=== PATIENT | male | born 1970 | race Caucasian/White ===

== ENCOUNTER 2021-06-08 11:01 | Observation (INO) | payer SELFPAY ==
[~2021-06-08] VITALS: Ht 190.5 cm; Wt 90.8 kg
[2021-06-08 12:58] LABS: BASOPHILS ABSOLUTE AUTO 0.02 K/mm3 (0.00-0.23); BASOPHILS PERCENT AUTO 0 % (0-2); EOSINOPHILS PERCENT AUTO 0 % (0-6); Hematocrit 47.3 % (37.0-53.0); Hemoglobin 15.9 g/dL (13.5-17.5); IMMATURE GRAN ABSOLUTE AUTO 0.04 K/mm3 (0.00-0.10); IMMATURE GRAN PERCENT AUTO 1 % (0-1); LYMPHOCYTES ABSOLUTE AUTO 0.59 K/mm3 (0.84-5.20); LYMPHOCYTES PERCENT AUTO 9 % (21-46); MONOCYTES ABSOLUTE AUTO 0.29 K/mm3 (0.16-1.47); MONOCYTES PERCENT AUTO 4 % (4-13); Mean Corpuscular HGB 26.6 pg (26.0-34.0); Mean Corpuscular HGB Conc 33.6 g/dL (31.5-36.5); Mean Corpuscular Volume 79 fL (80-100); Mean Platelet Volume 11.7 fL (9.1-12.4); NEUTROPHILS ABSOLUTE AUTO 5.86 K/mm3 (1.96-9.15); NEUTROPHILS PERCENT AUTO 86 % (41-73); Platelet Count 186 K/mm3 (150-400); RDW Coefficient Variation 13.2 % (11.7-14.2); RDW Standard Deviation 38.6 fL (35.1-46.3); Red Blood Cell Count 5.97 M/mm3 (4.30-5.90)
[2021-06-08 13:17] LABS: Alanine Aminotransfer (ALT/SGP 50 U/L (12-78); Albumin, Blood 3.7 g/dL (3.4-5.0); Albumin/Globulin Ratio 0.8 (0.8-1.8); Alk Phos 87 U/L (50-136); Anion Gap 17 mmol/L (6-16); Aspartate Aminotrans (AST/SGOT 45 U/L (12-37); Bilirubin, Total 0.5 mg/dL (0.1-1.0); Blood Urea Nitrogen 16 mg/dL (8-24); Bun/Creatinine Ratio 20.1 (12.0-20.0); CO2, Blood 13 mmol/L (21-32); Calcium, Blood 9.3 mg/dL (8.5-10.1); Chloride, Blood 105 mmol/L (98-108); Globulin, Blood 4.4 g/dL (2.2-4.0); Glomerular Filtration Rate >60 (60-); Glucose, Blood 345 mg/dL (70-99); Potassium, Blood 4.3 mmol/L (3.5-5.5); Sodium, Blood 135 mmol/L (136-145); Total Protein, Blood 8.1 g/dL (6.4-8.2)
[2021-06-08] MEDS ORDERED: OMEP20ER PO (14:11)
[2021-06-08] MEDS ORDERED: ZYRTEC10 M2 PO (14:11)
[2021-06-08 17:46] LABS: Anion Gap 15 mmol/L (6-16); Blood Urea Nitrogen 17 mg/dL (8-24); Bun/Creatinine Ratio 21.1 (12.0-20.0); CO2, Blood 13 mmol/L (21-32); Calcium, Blood 8.5 mg/dL (8.5-10.1); Chloride, Blood 111 mmol/L (98-108); Creatinine, Blood 0.81 mg/dL (0.60-1.20); Glomerular Filtration Rate >60 (60-); Glucose, Blood 310 mg/dL (70-99); Potassium, Blood 4.2 mmol/L (3.5-5.5); Sodium, Blood 139 mmol/L (136-145)
[2021-06-08 19:02] LABS: PCO2 Arterial 20.1 mmHg (35-45); PO2 Arterial 86.4 mmHg (80-100); pH Blood Arterial 7.28 (7.35-7.45)
[2021-06-08 23:50] LABS: Albumin, Blood 3.1 g/dL (3.4-5.0); Anion Gap 14 mmol/L (6-16); Blood Urea Nitrogen 14 mg/dL (8-24); Bun/Creatinine Ratio 17.1 (12.0-20.0); CO2, Blood 15 mmol/L (21-32); Calcium, Blood 8.5 mg/dL (8.5-10.1); Chloride, Blood 109 mmol/L (98-108); Creatinine, Blood 0.82 mg/dL (0.60-1.20); Glomerular Filtration Rate >60 (60-); Glucose, Blood 250 mg/dL (70-99); Magnesium, Blood 1.8 mg/dL (1.6-2.4); Phosphorus, Blood 2.5 mg/dL (2.5-4.9); Sodium, Blood 138 mmol/L (136-145)
--- NOTE | 2021-06-09 00:14 | NUR ---
PHYSICIAN COMMUNICATION CONTACTED PRODUCT SCIENTIST PHYSICIAN, DR JOEL, TO NOTIFY HER THAT THE PATIENT WAS HAVING A BAD COUGH AND REQUESTING COUGH MEDICINE. DR JOEL SAID TO ORDER GUAIFENESIN WITH LAURA.
[2021-06-09 04:52] LABS: Hematocrit 39.3 % (37.0-53.0); Hemoglobin 12.9 g/dL (13.5-17.5); Mean Corpuscular HGB Conc 32.8 g/dL (31.5-36.5); Mean Corpuscular Volume 82 fL (80-100); Mean Platelet Volume 11.3 fL (9.1-12.4); Platelet Count 162 K/mm3 (150-400); RDW Coefficient Variation 13.5 % (11.7-14.2); RDW Standard Deviation 40.6 fL (35.1-46.3); Red Blood Cell Count 4.77 M/mm3 (4.30-5.90); White Blood Cell Count 5.24 K/mm3 (4.00-11.30)
[2021-06-09 05:09] LABS: Anion Gap 10 mmol/L (6-16); Blood Urea Nitrogen 15 mg/dL (8-24); Bun/Creatinine Ratio 17.9 (12.0-20.0); CO2, Blood 18 mmol/L (21-32); Calcium, Blood 8.1 mg/dL (8.5-10.1); Chloride, Blood 111 mmol/L (98-108); Creatinine, Blood 0.84 mg/dL (0.60-1.20); Glomerular Filtration Rate >60 (60-); Glucose, Blood 256 mg/dL (70-99); Magnesium, Blood 1.9 mg/dL (1.6-2.4); Phosphorus, Blood 2.6 mg/dL (2.5-4.9); Potassium, Blood 4.1 mmol/L (3.5-5.5); Sodium, Blood 139 mmol/L (136-145)
--- NOTE | 2021-06-09 06:17 | NUR ---
SHIFT SUMMARY PATIENT ALERT AND ORIENTED. INDEPENDENT IN HIS ROOM. MEDICATED PER EMAR FOR PAIN AND COUGH. PATIENT TACHYPNIC AND SHORT OF BREATH. SATING IN 90'S ON ROOM AIR. NO ACUTE ISSUES NOTED. IV PATENT AND INFUSING. BED IN LOWEST POSITION WITH WHEELS LOCKED. CALL LIGHT WITHIN REACH. REPORT GIVEN TO ONCOMING RN.
[2021-06-09 09:23] LABS: Albumin, Blood 2.7 g/dL (3.4-5.0); Anion Gap 9 mmol/L (6-16); Blood Urea Nitrogen 14 mg/dL (8-24); Bun/Creatinine Ratio 21.2 (12.0-20.0); CO2, Blood 18 mmol/L (21-32); Calcium, Blood 7.9 mg/dL (8.5-10.1); Chloride, Blood 112 mmol/L (98-108); Creatinine, Blood 0.66 mg/dL (0.60-1.20); Glomerular Filtration Rate >60 (60-); Glucose, Blood 233 mg/dL (70-99); Potassium, Blood 3.9 mmol/L (3.5-5.5); Sodium, Blood 139 mmol/L (136-145)
[2021-06-09] MEDS ORDERED: ACET325 PO (18:13)
[2021-06-09] MEDS ORDERED: ALBU90OI INH (18:15)
[2021-06-09] MEDS ORDERED: Tessalon200 MG PO (18:16)
[2021-06-09] MEDS ORDERED: CODEINE-GUAIFE120 M1 PO (18:19)
[2021-06-09] MEDS ORDERED: INSULANPEN SC (18:20)
[2021-06-09] MEDS ORDERED: INSULIN LI100 UNIT/6 SC ×2 (18:20→18:21)
[2021-06-09] MEDS ORDERED: K-Phos Origina500 MG PO (18:22)
[2021-06-09] MEDS ORDERED: SYMBICORT 80-10.2 GM INH (18:40)
--- NOTE | 2021-06-09 19:34 | NUR ---
SHIFT SUMMARY: NO ACUTE CHANGES TO REPORT THIS SHIFT. PT A&O; CALM AND COOPERATIVE WITH CARE; INDEPENDENT IN ROOM. PATIENT READY FOR DISCHARGE; IV D/C'd; EDUCATION COMPLETED; MEDS FAXED TO [facility]; AWITING FAMILY PICK-UP. REPORT GIVEN TO ONCOMING RN.
--- NOTE | 2021-06-09 20:39 | NUR ---
PT DISCHARGED HOME WITH HIS .
--- NOTE | 2021-06-10 17:30 | NUR ---
JORDYN BRIGGS THIS RN TOOK A VERBAL ORDER FOR A PRESCRIPTION FROM DR. MICHAUD- JORDYN ODT 4 MG PO EVERY 4 HOURS NEEDED. 30 TABS, NO REFILLS. THIS RN CALLED PRESCRIPTION INTO [facility] PER PT REQUEST.
== END 2021-06-09 20:36 | disposition home or self-care (01) ==
LOC: ER 11:01 → ERHOLD 11:02 → MEDS 20:32
PROVIDERS: Emergency Medicine; Physician Assistant; ADMIT Internal Medicine
DX: E11.65 Type 2 diabetes mellitus with hyperglycemia (principal); E86.0 Dehydration; U07.1 COVID-19; J12.82 Pneumonia due to coronavirus disease 2019; E83.39 Other disorders of phosphorus metabolism; J45.909 Unspecified asthma, uncomplicated; I10 Essential (primary) hypertension; K21.9 Gastro-esophageal reflux disease without esophagitis
CPT/HCPCS: 36415; 36600; 71045; 80048; 80053; 80069; 82803; 82947; 83036; 83735; 84100; 84145; 85025; 85027; 94640; 96361; 96372; 96374; 96375; 99285-25; A9270; G0378; J1650; J2405; J2550; J7030

== ENCOUNTER 2021-06-13 11:11 | Inpatient (IN) | payer SELFPAY ==
[~2021-06-13] VITALS: Ht 182.9 cm; Wt 88.9 kg
[~2021-06-13 11:11] MED LIST: ACET325 PO; ALBU90OI INH; CODEINE-GUAIFE120 M1 PO; INSULANPEN SC; INSULIN LI100 UNIT/6 SC; K-Phos Origina500 MG PO; OMEP20ER PO; SYMBICORT 80-10.2 GM INH; Tessalon200 MG PO; ZYRTEC10 M2 PO
[2021-06-13 12:33] LABS: BASOPHILS ABSOLUTE AUTO 0.04 K/mm3 (0.00-0.23); BASOPHILS PERCENT AUTO 1 % (0-2); EOSINOPHILS ABSOLUTE AUTO 0.02 K/mm3 (0.00-0.68); EOSINOPHILS PERCENT AUTO 0 % (0-6); Hematocrit 40.5 % (37.0-53.0); Hemoglobin 13.4 g/dL (13.5-17.5); IMMATURE GRAN PERCENT AUTO 2 % (0-1); LYMPHOCYTES PERCENT AUTO 13 % (21-46); MONOCYTES ABSOLUTE AUTO 0.51 K/mm3 (0.16-1.47); MONOCYTES PERCENT AUTO 7 % (4-13); Mean Corpuscular HGB 26.4 pg (26.0-34.0); Mean Corpuscular HGB Conc 33.1 g/dL (31.5-36.5); Mean Corpuscular Volume 80 fL (80-100); Mean Platelet Volume 11.3 fL (9.1-12.4); NEUTROPHILS ABSOLUTE AUTO 5.32 K/mm3 (1.96-9.15); NEUTROPHILS PERCENT AUTO 77 % (41-73); Platelet Count 234 K/mm3 (150-400); RDW Coefficient Variation 13.6 % (11.7-14.2); RDW Standard Deviation 39.8 fL (35.1-46.3); Red Blood Cell Count 5.07 M/mm3 (4.30-5.90); White Blood Cell Count 6.89 K/mm3 (4.00-11.30)
[2021-06-13 12:56] LABS: Alanine Aminotransfer (ALT/SGP 24 U/L (12-78); Albumin, Blood 2.4 g/dL (3.4-5.0); Albumin/Globulin Ratio 0.5 (0.8-1.8); Alk Phos 97 U/L (50-136); Anion Gap 13 mmol/L (6-16); Aspartate Aminotrans (AST/SGOT 24 U/L (12-37); Bilirubin, Total 0.6 mg/dL (0.1-1.0); Blood Urea Nitrogen 13 mg/dL (8-24); Bun/Creatinine Ratio 18.8 (12.0-20.0); CO2, Blood 17 mmol/L (21-32); Calcium, Blood 8.5 mg/dL (8.5-10.1); Chloride, Blood 110 mmol/L (98-108); Creatinine, Blood 0.69 mg/dL (0.60-1.20); Globulin, Blood 4.7 g/dL (2.2-4.0); Glomerular Filtration Rate >60 (60-); Glucose, Blood 290 mg/dL (70-99); Potassium, Blood 3.4 mmol/L (3.5-5.5); Sodium, Blood 140 mmol/L (136-145); Total Protein, Blood 7.1 g/dL (6.4-8.2); Troponin I <0.015 ng/mL (0.000-0.040)
[2021-06-13 14:40] LABS: Base Excess Venous -8.3 mmol/L; Bicarbonate Venous 17.9 mmol/L (24.0-30.0); PCO2 Venous 39.8 mmHg (38-42); PO2 Venous 53.2 mmHg (38-42); pH Blood Venous 7.28 (7.34-7.37)
[2021-06-13 19:54] LABS: Albumin, Blood 2.4 g/dL (3.4-5.0); Anion Gap 14 mmol/L (6-16); Blood Urea Nitrogen 13 mg/dL (8-24); Bun/Creatinine Ratio 18.3 (12.0-20.0); CO2, Blood 17 mmol/L (21-32); Calcium, Blood 8.7 mg/dL (8.5-10.1); Chloride, Blood 108 mmol/L (98-108); Creatinine, Blood 0.71 mg/dL (0.60-1.20); Glomerular Filtration Rate >60 (60-); Glucose, Blood 304 mg/dL (70-99); Phosphorus, Blood 2.1 mg/dL (2.5-4.9); Potassium, Blood 3.7 mmol/L (3.5-5.5); Sodium, Blood 139 mmol/L (136-145)
--- NOTE | 2021-06-13 20:09 | NUR ---
ARRIVED FROM ER, RESTING QUIETLY, 2l VIA NC, INFUSING WITH NO S/SX OF INFECTION OR INFILTRATION, DR REQUESTED CBG BE DONE WHEN FLUIDS WERE COMPLETED, CALL LIGHT IN REACH, BSR SHARED WITH NOC NURSE AND PT
[2021-06-14 05:28] LABS: Hematocrit 39.5 % (37.0-53.0); Hemoglobin 13.1 g/dL (13.5-17.5); Mean Corpuscular HGB 26.6 pg (26.0-34.0); Mean Corpuscular HGB Conc 33.2 g/dL (31.5-36.5); Mean Corpuscular Volume 80 fL (80-100); Mean Platelet Volume 11.2 fL (9.1-12.4); Platelet Count 252 K/mm3 (150-400); RDW Coefficient Variation 13.8 % (11.7-14.2); RDW Standard Deviation 40.4 fL (35.1-46.3); Red Blood Cell Count 4.93 M/mm3 (4.30-5.90); White Blood Cell Count 8.74 K/mm3 (4.00-11.30)
--- NOTE | 2021-06-14 05:46 | NUR ---
SHIFT SUMMARY: AOX3, INDEPENDENT IN THE ROOM. INCREASE IN BRONCIAL SPASMS TONIGHT CAUSING SATS TO DROP DOWN TO 80%, THICH YELLOWISH BROWN SECREATIONS OCCATIONAL. LUNG SOUNDS CLEAR. FEBRILE AT 100.5 TYLENOL GIVEN, 99.5 NOW. HTN RUNNING 150-170'S. TACHYCARDIC IN THE 100'S. BLOOD SUGAR THIS AM 352. IVF STILL INFUSING. NO PAIN. ON 2LITERS OF O2. SLEPT WELL OFF AND ON. CALL LIGHT IS IN REACH.
[2021-06-14 05:58] LABS: Anion Gap 13 mmol/L (6-16); Blood Urea Nitrogen 15 mg/dL (8-24); Bun/Creatinine Ratio 22.1 (12.0-20.0); CO2, Blood 15 mmol/L (21-32); Calcium, Blood 8.5 mg/dL (8.5-10.1); Chloride, Blood 111 mmol/L (98-108); Creatinine, Blood 0.68 mg/dL (0.60-1.20); Glomerular Filtration Rate >60 (60-); Glucose, Blood 289 mg/dL (70-99); Potassium, Blood 4.3 mmol/L (3.5-5.5); Sodium, Blood 139 mmol/L (136-145)
--- NOTE | 2021-06-14 17:50 | NUR ---
PATIENT A/OX4, UP INDEOENDENTLY IN ROOM. LUNGS CLEAR DIM THROUGHOUT, 2LO2 TO MAINTAIN SATS. REDESIVIR AND DECADRON TO TREAT COVID SYMPTOMS, LOVENOX TO TREAT PE. PATIENT GIVEN TESSALON LOLA AND GUAIFENESIN WITH CODEINE TO TREAT. APPETITE IMPROVING. VSS, AFEBRILE THIS SHIFT. CALM AND COOPERATIVE WITH CARE, CALLS APPROPRIATELY FOR ASSISTANCE.
[2021-06-15 06:04] LABS: Albumin, Blood 2.1 g/dL (3.4-5.0); Anion Gap 12 mmol/L (6-16); Blood Urea Nitrogen 16 mg/dL (8-24); Bun/Creatinine Ratio 26.6 (12.0-20.0); CO2, Blood 18 mmol/L (21-32); Calcium, Blood 8.3 mg/dL (8.5-10.1); Chloride, Blood 106 mmol/L (98-108); Glomerular Filtration Rate >60 (60-); Glucose, Blood 276 mg/dL (70-99); Phosphorus, Blood 2.6 mg/dL (2.5-4.9); Potassium, Blood 3.9 mmol/L (3.5-5.5); Sodium, Blood 136 mmol/L (136-145)
--- NOTE | 2021-06-15 06:51 | NUR ---
SHIFT SUMMARY: AOX3, COOPERATIVE. INDEPENDENT IN THE ROOM. DECREASE IN COUGHING SPASMS, SATS HAVE MAINTAINED 97% ON 2 LITERS NO DESATS TONIGHT. VS WNL, AFEBRILE. APPETITE IMPROVING. SLEPT WELL. DC'D IV FLUIDS, PATIENT DRINKS PLENTY OF WATER. NO ACUTE CHANGES. CALL LIGHT REMAINS IN REACH.
--- NOTE | 2021-06-15 18:38 | NUR ---
PATIENT A/OX4, UP INDEPENDENTLY IN ROOM. WEANED TO RA THIS AFTERNOON AND PATIENT HAS BEEN MAINTAING >92%. VSS. TOLERATING ADA DIET. ACHS BLOOD SUGARS. CALM AND COOPERATIVE WITH CARE. GUAIFENESIN WITH CODEINE WORKING WELL TO CONTROL COUGH. IBUPROFEN AND TYLENOL GIVEN X1 THIS SHIFT TO TREAT HEADACHE WITH STATED RELIEF.
--- NOTE | 2021-06-15 22:56 | NUR ---
2024 L IV PATENT, SITE WNL.
--- NOTE | 2021-06-15 23:12 | NUR ---
2024 PT LYING IN BED, REPORTS SOB W/EXERTION, ON RA AT 91%. REPORTS HEADACHE OF 6/10, WILL MEDICATE AND EVAL FOR EFFECT. NO OTHER APPARENT SIGNS OF DISTRESS. CALL LIGHT IS IN REACH. BS WAS 318.
--- NOTE | 2021-06-16 00:53 | NUR ---
0000 PT LYING IN BED, EYES CLOSED, APPEARS TO BE RESTING. BREATHING IS EVEN, UNLABORED. NO APPARNT SIGNS OF DISTRESS. CALL LIGHT IS IN REACH.
--- NOTE | 2021-06-16 02:45 | NUR ---
0230 PT LYING IN BED, AWAKE, NO APPARENT SIGNS OF DISTRESS. CALL LIGHT IS IN REACH. DENIES NEED FOR ANYTHING AT THIS TIME.
--- NOTE | 2021-06-16 04:01 | NUR ---
PT LYING IN BED, EYES CLOSED, APPEARS TO BE RESTING. BREATHING IS EVEN, UNLABORED. NO APPARENT SIGNS OF DISTRESS. CALL LIGHT IS IN REACH.
--- NOTE | 2021-06-16 04:02 | NUR ---
PT IS AAO X 4, ON RA 95%. REPORTS SOB W/EXERTION. PT REPORTED HEADACHE AND GOT TYLENOL AT HS. BS WAS 318.
--- NOTE | 2021-06-16 05:42 | NUR ---
PT LYING IN BED, EYES CLOSED, APPEARS TO BE RESTING. BREATHING IS EVEN, UNLABORED. NO APPARENT SIGNS OF DISTRESS. CALL LIGHT IS IN REACH. NO OTHER CHANGES THIS SHIFT.
[2021-06-16] MEDS ORDERED: XARELTO1 EAC1 PO (11:02)
--- NOTE | 2021-06-16 12:24 | NUR ---
DISCHARGE DISCHARGE MEDICATIONS AND INSTRUCTIONS EXPLAINED TO PATIENT. PATIENT STATED UNDERSTANDING. PATIENT TO CALL PCP TO SCHEDULE FOLLOW UP THURSDAY. IV REMOVED WITHOUT ISSUE. BELONGINGS WITH PATIENT. PATIENT TRANSFERED TO PRIVATE VEHICLE VIA WHEELCHAIR.
== END 2021-06-16 12:18 | disposition home or self-care (01) | DRG 177 ==
LOC: ER 11:11 → ERHOLD 14:33 → MEDS 17:18
PROVIDERS: Family Medicine; Physician Assistant; Student in an Organized Health Care Education/Training Program; ADMIT Internal Medicine
PROC: 8E0ZXY6 Isolation (ICD-10-PCS; principal; 2021-06-13)
PROC: 3E0333Z Introduction of Anti-inflammatory into Peripheral Vein, Percutaneous Approach (ICD-10-PCS; 2021-06-13)
PROC: XW033E5 Introduction of Remdesivir Anti-infective into Peripheral Vein, Percutaneous Approach, New Technology Group 5 (ICD-10-PCS; 2021-06-13)
DX: U07.1 COVID-19 (principal); I26.99 Other pulmonary embolism without acute cor pulmonale; J12.82 Pneumonia due to coronavirus disease 2019; J96.01 Acute respiratory failure with hypoxia; E87.2 Acidosis; E87.6 Hypokalemia; E11.65 Type 2 diabetes mellitus with hyperglycemia; J45.909 Unspecified asthma, uncomplicated; I10 Essential (primary) hypertension; K21.9 Gastro-esophageal reflux disease without esophagitis; Z79.899 Other long term (current) drug therapy; Z90.49 Acquired absence of other specified parts of digestive tract; Z90.89 Acquired absence of other organs; Z79.4 Long term (current) use of insulin
CPT/HCPCS: 36415; 71045; 71260; 80048; 80053; 80069; 82010; 82803; 82947; 83690; 83880; 84484; 85025; 85027; 93005; 93010; 94640; 94664; 94760; 94762; 96374; 96375; 99285-25; A9270; J1100; J1650; J1885; J3480; J7030; Q9967

== ENCOUNTER 2022-01-15 08:38 | Day surgery (SDC) | payer OTHER ==
[~2022-01-15] VITALS: Ht 182.9 cm; Wt 106.3 kg
[~2022-01-15 08:38] MED LIST changes: +XARELTO1 EAC1 PO
[2022-01-15] MEDS ORDERED: MELO7.5 PO (09:06)
[2022-01-15] MEDS ORDERED: GABA300 PO (09:06)
[2022-01-15] MEDS ORDERED: CYCL10 PO (09:06)
[2022-01-15] MEDS ORDERED: CLEM1.34 (09:07)
== END 2022-01-15 11:02 | disposition home or self-care (01) ==
LOC: ORSCSDS 08:38
PROVIDERS: Orthopaedic Surgery
PROC: 01N54ZZ Release Median Nerve, Percutaneous Endoscopic Approach (ICD-10-PCS; principal; 2022-01-15 10:00)
DX: G56.03 Carpal tunnel syndrome, bilateral upper limbs (principal); J45.909 Unspecified asthma, uncomplicated; E11.9 Type 2 diabetes mellitus without complications; I10 Essential (primary) hypertension; E66.9 Obesity, unspecified; K21.9 Gastro-esophageal reflux disease without esophagitis; Z68.32 Body mass index [BMI] 32.0-32.9, adult; G47.33 Obstructive sleep apnea (adult) (pediatric); Z87.891 Personal history of nicotine dependence; Z68.31 Body mass index [BMI] 31.0-31.9, adult; Z79.4 Long term (current) use of insulin; Z79.899 Other long term (current) drug therapy
CPT/HCPCS: 82947; J2250; J2704; J3010

== ENCOUNTER 2022-02-19 07:01 | Day surgery (SDC) | payer OTHER ==
[~2022-02-19] VITALS: Ht 182.9 cm; Wt 107.7 kg
[~2022-02-19 07:01] MED LIST changes: +CLEM1.34; +CYCL10 PO; +FIASP 100100 UNIT/3; +GABA300 PO; +INSULANI; +MELO7.5 PO
--- NOTE | 2022-02-19 08:42 | NUR ---
02/19/22 0842 Janine Arrington TIME OUT AND SITE CHECK DONE WITH DR LONGORIA AND [facility]
== END 2022-02-19 09:45 | disposition home or self-care (01) ==
LOC: ORSCSDS 07:01
PROVIDERS: Orthopaedic Surgery
PROC: 01N54ZZ Release Median Nerve, Percutaneous Endoscopic Approach (ICD-10-PCS; principal; 2022-02-19 08:30)
DX: G56.02 Carpal tunnel syndrome, left upper limb (principal); I10 Essential (primary) hypertension; E11.9 Type 2 diabetes mellitus without complications; J45.909 Unspecified asthma, uncomplicated; E66.9 Obesity, unspecified; Z68.32 Body mass index [BMI] 32.0-32.9, adult; Z79.4 Long term (current) use of insulin; Z79.899 Other long term (current) drug therapy
CPT/HCPCS: 82947; J0171; J2250; J3010; J7120